=== PATIENT | female | born 2000 | race African-American/Black ===

== ENCOUNTER 2022-01-06 19:17 | Inpatient (IN) | payer OTHER ==
[2022-01-06 19:32] VITALS: BMI 39.3
[2022-01-06 21:50] LABS: BASO % 0.4 % (0-2.0); EOS % 1.6 % (0-4.5); HEMATOCRIT 27.7 % (32.4-45.2); HEMOGLOBIN 9.1 GM/dL (10.7-15.3); LYMPH % 18.2 % (8-40); MCH 26.6 pg (25.7-33.7); MEAN CELL VOLUME 80.4 fl (80-96); MEAN PLT VOLUME 9.2 fl (7.5-11.1); MONO % 7.6 % (3.8-10.2); NEUT % 72.2 % (42.8-82.8); PLATELET COUNT 312 10^3/uL (134-434); RBC 3.45 M/mm3 (3.60-5.2); RDW 15.9 % (11.6-15.6); WHITE BLOOD COUNT 12.5 K/mm3 (4.0-10.0)
[2022-01-06 22:12] LABS: BLOOD UREA NITROGEN 8.2 mg/dL (7-18)
[2022-01-06 22:13] LABS: ALBUMIN 3.1 g/dl (3.4-5.0)
[2022-01-06 22:16] LABS: CREATININE 0.6 mg/dL (0.55-1.3)
[2022-01-06 22:17] LABS: TOT PROT 7.2 g/dl (6.4-8.2)
[2022-01-06 22:19] LABS: INR 0.97 (0.83-1.09); PROTHROMBIN TIME (PATIENT) 11.1 SEC (9.7-13.0)
[2022-01-06 22:22] LABS: ACTIVATED PTT 26.1 SECONDS (25.2-36.5)
[2022-01-06 22:35] LABS: BILIRUBIN,TOTAL 0.4 mg/dL (0.2-1)
[2022-01-07] MEDS ORDERED: DEXTROSE 5%-LACTATED RINGERS 1,000 ML IV SCH ×2 (05:45→11:13)
[2022-01-07] MEDS ORDERED: ceFAZolin SODIUM 1 GM VIAL ONE ×3 (07:12→08:29)
[2022-01-07] MEDS ORDERED: ONDANSETRON 4 MG/2 ML VIAL IVPUSH PRN ×2 (07:17→11:13)
[2022-01-07] MEDS ORDERED: ceFAZolin SODIUM 1 GM VIAL IVPB ONE ×5 (07:19→08:45)
[2022-01-07] MEDS ORDERED: LACTATED RINGERS SOLUTION 1,000 ML IV SCH (07:30)
[2022-01-07] MEDS ORDERED: ONDANSETRON 4 MG/2 ML VIAL ONE (08:32)
[2022-01-07] MEDS ORDERED: INDOMETHACIN 50 MG CAPSULE PO ONE ×2 (09:41→11:13)
[2022-01-07] MEDS ORDERED: INDOMETHACIN 25 MG CAPSULE PO SCH (10:00)
[2022-01-07] MEDS ORDERED: CEFAZOLIN 1 GM in DEXTROSE 5%-WATER 50 ML IVPB SCH ×2 (10:00→18:00)
[2022-01-07] MEDS: INDOMETHACIN 25 MG CAPSULE PO SCH ×3 (15:07→21:31)
[2022-01-07] MEDS: CEFAZOLIN 1 GM in DEXTROSE 5%-WATER - 50 ML IVPB SCH (18:09)
[2022-01-08] MEDS: CEFAZOLIN 1 GM in DEXTROSE 5%-WATER - 50 ML IVPB SCH ×2 (01:21→09:58)
[2022-01-08 01:25] VITALS: RESP 16
[2022-01-08] MEDS: INDOMETHACIN 25 MG CAPSULE PO SCH (09:59)
[2022-01-08 14:18] VITALS: BP 137/77; PULSE 91; TEMP 98.3
== END 2022-01-08 13:45 | disposition home or self-care (01) | DRG 546 ==
LOC: JER 19:17 → JERBED 23:26 → J3W 01-07 00:51
PROVIDERS: ADMIT Obstetrics & Gynecology Maternal & Fetal Medicine; ATTEND Obstetrics & Gynecology Maternal & Fetal Medicine
PROC: 0UVC7ZZ Restriction of Cervix, Via Natural or Artificial Opening (ICD-10-PCS; principal; 2022-01-07 07:30)
DX: O26.872 Cervical shortening, second trimester (principal); E66.9 Obesity, unspecified; O99.212 Obesity complicating pregnancy, second trimester; Z3A.19 19 weeks gestation of pregnancy; Z87.59 Personal history of other complications of pregnancy, childbirth and the puerperium
CPT/HCPCS: 36415; 80053; 85025; 85610; 85730; 86850; 86900; 86901; 94760; 99285-25; C9803-CS; U0003; U0005